=== PATIENT | male | born 1950 | race Caucasian/White ===

== ENCOUNTER 2016-07-07 10:23 | Outpatient (CLI) | payer OTHER ==
[2016-07-07 11:09] LABS: Hemoglobin A1c 12.4 % (4.0-6.0)
[2016-07-07 11:11] LABS: ALT (SGPT) 18 U/L (0-55); AST (SGOT) 11 U/L (5-34); Albumin 4.6 g/dL (3.4-4.8); Alkaline Phosphatase 59 U/L (40-150); Anion Gap 16 mmol/L (10-20); BUN (Urea Nitrogen) 19 mg/dL (8.4-25.7); Bilirubin, Total 0.4 mg/dL (0.2-1.2); Calc. Creatinine Clearance 0 mL/min (70-130); Calcium 9.6 mg/dL (7.8-10.44); Carbon Dioxide 25 mmol/L (23-31); Cardiac Risk 4.9 (Less than 4.5); Chloride 98 mmol/L (98-107); Cholesterol 142 mg/dL (< 200 Desired); Estimated GFR-MDRD 57; Globulin 2.7 g/dL (2.4-3.5); Glucose 353 mg/dL (80-115); HDL Cholesterol 29 mg/dL (>60 Neg Risk); LDL Cholesterol, Calculated 72 mg/dL; Potassium 4.1 mmol/L (3.5-5.1); Protein, Total 7.3 g/dL (5.8-8.1); Sodium 135 mmol/L (136-145); Triglycerides 205 mg/dL (Less than 150)
[2016-07-07 17:38] LABS: Creatinine, Urine 106.88 mg/dL (63-166); Microalbumin/Creat Ratio 65.5 mg/g (Less than 30)
== END 2016-07-07 10:24 | disposition home or self-care (01) ==
LOC: MADLABBHPM 10:23
PROVIDERS: ATTEND Family Medicine
DX: E11.65 Type 2 diabetes mellitus with hyperglycemia (principal); E78.2 Mixed hyperlipidemia
CPT/HCPCS: 36415; 80053; 80061; 82043; 83036

== ENCOUNTER 2016-07-17 12:58 | Outpatient (CLI) | payer MEDICARE, OTHER ==
[2016-07-17 17:15] LABS: Microalbumin-Urine 2.2 mg/dL; Microalbumin/24 Hr 5.06 mg/24 hr (Less than 30)
== END 2016-07-17 12:59 | disposition home or self-care (01) ==
LOC: MADLABBHPM 12:58
PROVIDERS: ATTEND Family Medicine
DX: E11.65 Type 2 diabetes mellitus with hyperglycemia (principal)
CPT/HCPCS: 36415; 82043

== ENCOUNTER 2016-09-18 08:46 | Outpatient (CLI) | payer MEDICARE ==
[2016-09-18 09:38] LABS: Hemoglobin A1c 9.4 % (4.0-6.0)
[2016-09-18 09:39] LABS: ALT (SGPT) 26 U/L (8-55); AST (SGOT) 22 U/L (5-34); Albumin 4.5 g/dL (3.4-4.8); Alkaline Phosphatase 46 U/L (40-150); Anion Gap 17 mmol/L (10-20); BUN (Urea Nitrogen) 17 mg/dL (8.4-25.7); Bilirubin, Total 0.4 mg/dL (0.2-1.2); Calc. Creatinine Clearance 0 mL/min (70-130); Calcium 9.4 mg/dL (7.8-10.44); Carbon Dioxide 23 mmol/L (23-31); Chloride 104 mmol/L (98-107); Estimated GFR-MDRD 53; Globulin 2.7 g/dL (2.4-3.5); Glucose 173 mg/dL (80-115); Potassium 3.9 mmol/L (3.5-5.1); Protein, Total 7.2 g/dL (5.8-8.1); Sodium 140 mmol/L (136-145)
== END 2016-09-18 08:47 ==
LOC: MADLABBHPM 08:46
PROVIDERS: ATTEND Family Medicine
DX: E11.65 Type 2 diabetes mellitus with hyperglycemia (principal)
CPT/HCPCS: 36415; 80053; 83036

== ENCOUNTER 2016-10-14 09:06 | Outpatient (CLI) | payer MEDICARE ==
[2016-10-14 09:37] LABS: Anion Gap 17 mmol/L (10-20); BUN (Urea Nitrogen) 26 mg/dL (8.4-25.7); Calc. Creatinine Clearance 0 mL/min (70-130); Calcium 10.2 mg/dL (7.8-10.44); Carbon Dioxide 26 mmol/L (23-31); Chloride 99 mmol/L (98-107); Estimated GFR-MDRD 43; Glucose 365 mg/dL (80-115); Sodium 138 mmol/L (136-145)
== END 2016-10-14 09:07 ==
LOC: MADLABBHPM 09:06
PROVIDERS: ATTEND Family Medicine
DX: E11.65 Type 2 diabetes mellitus with hyperglycemia (principal)
CPT/HCPCS: 36415; 80048

== ENCOUNTER 2017-01-05 09:23 | Outpatient (CLI) | payer MEDICARE ==
[2017-01-05 10:07] LABS: Hemoglobin A1c 10.2 % (4.0-6.0)
[2017-01-05 10:39] LABS: ALT (SGPT) 31 U/L (8-55); AST (SGOT) 19 U/L (5-34); Albumin 4.5 g/dL (3.4-4.8); Alkaline Phosphatase 50 U/L (40-150); Anion Gap 16 mmol/L (10-20); BUN (Urea Nitrogen) 22 mg/dL (8.4-25.7); Bilirubin, Total 0.3 mg/dL (0.2-1.2); Calc. Creatinine Clearance 0 mL/min (70-130); Calcium 9.8 mg/dL (7.8-10.44); Carbon Dioxide 24 mmol/L (23-31); Cardiac Risk 4.5 (Less than 4.5); Chloride 103 mmol/L (98-107); Cholesterol 162 mg/dl (< 200 Desired); Estimated GFR-MDRD 48; Glucose 258 mg/dL (80-115); HDL Cholesterol 36 mg/dL (>60 Neg Risk); LDL Cholesterol, Calculated 102 mg/dL; Protein, Total 7.5 g/dL (5.8-8.1); Sodium 139 mmol/L (136-145); Triglycerides 121 mg/dL (Less than 150)
== END 2017-01-05 09:24 | disposition home or self-care (01) ==
LOC: MADLABBHPM 09:23
PROVIDERS: ATTEND Family Medicine
DX: E78.2 Mixed hyperlipidemia (principal); E11.65 Type 2 diabetes mellitus with hyperglycemia
CPT/HCPCS: 36415; 80053; 80061; 83036

== ENCOUNTER 2018-11-09 16:41 | Outpatient (CLI) | payer MEDICARE ==
--- NOTE | 2018-11-09 17:08 | RAD ---
Right foot 3 views HISTORY: Right foot pain. FINDINGS: Lisfranc joint. Pes planus on the lateral view. Mild osteophytosis throughout the foot. Sena nt spaces are preserved. No acute fracture or dislocation. IMPRESSION: Mild degenerative changes. Pes planus.
--- NOTE | 2018-11-09 17:14 | RAD ---
Right ankle 3 views HISTORY: Right ankle pain and swelling. FINDINGS: Ankle mortise and talar dome are intact. Joint space is preserved. Mild osteophytosis. No a cute fracture, dislocation, or aggressive osseous erosions. Calcification over the arterial structures. IMPRESSION: Mild osteoarthritic changes right ankle. Atherosclerosis.
== END 2018-11-09 16:42 | disposition home or self-care (01) ==
LOC: MADRAD 16:41
PROVIDERS: ATTEND Family Medicine
DX: M79.89 Other specified soft tissue disorders (principal); R22.41 Localized swelling, mass and lump, right lower limb; M19.071 Primary osteoarthritis, right ankle and foot; I70.201 Unspecified atherosclerosis of native arteries of extremities, right leg; M21.41 Flat foot [pes planus] (acquired), right foot